=== PATIENT | male | born 1980 | race Caucasian/White ===

== ENCOUNTER 2019-11-06 16:53 | Emergency (ER) | payer OTHER, SELFPAY ==
[2019-11-06 16:54] VITALS: BP 152/93; PULSE 87; RESP 18; TEMP 36.7; O2SAT 98; BMI 25.1
[2019-11-06 17:10] VITALS: BMI 32.0
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
--- NOTE | 2019-11-06 17:12 | PC.NURSE ---
NOTIFIED RAD OF CT
--- NOTE | 2019-11-06 17:30 | PC.NURSE ---
PT TO CT
--- NOTE | 2019-11-06 17:47 | PC.NURSE ---
PT RETURNED FROM CT
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
[2019-11-06 18:33] VITALS: BP 123/85; PULSE 80; RESP 20; TEMP 36.8; O2SAT 98
== END 2019-11-06 18:33 | disposition home or self-care (01) ==
PROVIDERS: Emergency Provider Family Medicine
DX: S16.1XXA Strain of muscle, fascia and tendon at neck level, initial encounter (principal); S50.312A Abrasion of left elbow, initial encounter; V49.3XXA Car occupant (driver) (passenger) injured in unspecified nontraffic accident, initial encounter; Y92.488 Other paved roadways as the place of occurrence of the external cause
CPT/HCPCS: 70450; 71045; 72125; 72170; 73080; 99282